=== PATIENT | male | born 1955 | race Caucasian/White ===

== ENCOUNTER → 2019-12-06 | Outpatient (CLI) | payer OTHER ==
--- NOTE | 2019-12-06 20:05 | REP ---
Clinical: Right shoulder pain. Technique: Internal rotation, external rotation, and Y view of the right shoulder. Findings: Osseous structures, joint spaces, and surrounding soft tissues are normal for age. No acute fracture dislocation. No overt osteoarthritic degenerative changes. No periarticular calcifications or loose bodies. Subacromial space is normal. Impression: Normal right shoulder radiographs. Electronically Signed by Kenneth Mcknight MD 12/06/2019 07:57 P
== END ==
LOC: M ADAMS 08:27
PROVIDERS: ATTEND Physician Assistant Medical
DX: M25.511 Pain in right shoulder (principal)